=== PATIENT | female | born 1995 | race Caucasian/White ===

== ENCOUNTER 2020-04-06 12:05 | Inpatient (IN) | payer OTHER ==
[2020-04-06] MEDS ORDERED: CLINDAMYCIN 600MG PREMIX IVPB 600 MG/50 ML BAG IVPB ONE (13:14)
[2020-04-06] MEDS ORDERED: ACETAMINOPHEN 500 MG TABLET (FP) PO ONE (13:18)
[2020-04-06] MEDS ORDERED: ACETAMINOPHEN 500 MG TABLET (FP) ONE (13:49)
[2020-04-06] MEDS ORDERED: CLINDAMYCIN PHOSPHATE 600 MG/4 ML VIAL ONE (13:50)
[2020-04-06 14:15] LABS: HEMATOCRIT 42.2 % (32.4-45.2); HEMOGLOBIN 14.4 GM/dl (10.7-15.3); MCH 30.9 pg (25.7-33.7); MCHC 34.2 g/dl (32.0-36.0); MEAN CELL VOLUME 90.3 fl (80-96); PLATELET COUNT 323 K/MM3 (134-434); RBC 4.67 M/mm3 (3.60-5.2); RDW 13.3 % (11.6-15.6); WHITE BLOOD COUNT 7.8 K/mm3 (4.0-10.8)
[2020-04-06 14:17] LABS: INR 1.19 (0.82-1.09); PROTHROMBIN TIME (PATIENT) 13.2 SEC (10.2-13.0)
[2020-04-06 14:30] LABS: ALBUMIN 4.4 g/dl (3.4-5.0); BILIRUBIN,TOTAL 0.5 mg/dl (0.2-1); CALCIUM 9.4 mg/dl (8.5-10); CREATININE 0.7 mg/dl (0.55-1.3); TOT PROT 8.1 g/dl (6.4-8.2)
[2020-04-06] MEDS: ACETAMINOPHEN 325 MG TABLET (FP) PO PRN (18:22)
[2020-04-06] MEDS: VANCOMYCIN 1 GRAM (PRE-DOCKED) 1,000 MG/250 ML BAG IVPB SCH (22:19)
[2020-04-07] MEDS: VANCOMYCIN 1 GRAM (PRE-DOCKED) 1,000 MG/250 ML BAG IVPB SCH (09:09)
[2020-04-07 10:12] LABS: BASO % 0.5 % (0-2.0); EOS % 0.8 % (0-4.5); HEMATOCRIT 40.1 % (32.4-45.2); HEMOGLOBIN 13.5 GM/dl (10.7-15.3); LYMPH % 15.5 % (8-40); MCH 31.2 pg (25.7-33.7); MCHC 33.6 g/dl (32.0-36.0); MEAN CELL VOLUME 92.9 fl (80-96); MEAN PLT VOLUME 7.7 fl (7.5-11.1); NEUT % 77.2 % (42.8-82.8); PLATELET COUNT 351 K/MM3 (134-434); RBC 4.32 M/mm3 (3.60-5.2); RDW 13.2 % (11.6-15.6); WHITE BLOOD COUNT 8.4 K/mm3 (4.0-10.8)
[2020-04-07] MEDS: ACETAMINOPHEN 325 MG TABLET (FP) PO PRN (14:08)
[2020-04-07] MEDS: VANCOMYCIN 1 GM in D5W (PRE-DOCKED) 1,000 MG/250 ML IVPB SCH (17:12)
[2020-04-07] MEDS ORDERED: DEXTROSE 5%-WATER - 50 ML IVPB ONE (17:17)
[2020-04-07] MEDS ORDERED: PIPERACILLIN/TAZOBACTAM 3.375 GM VIAL IVPB ONE (17:17)
[2020-04-07] MEDS: CLINDAMYCIN 600MG PREMIX IVPB 600 MG/50 ML BAG IVPB SCH (17:22)
[2020-04-07] MEDS: PIPERACILLIN/TAZOB 3.375 GM 3.375 GM in DEXTROSE 5%-WATER - 50 ML IVPB SCH (17:23)
[2020-04-07] MEDS: ENOXAPARIN NA (PORCINE) 40 MG/0.4 ML DISP.SYRIN SQ SCH (20:49)
[2020-04-08] MEDS: PIPERACILLIN/TAZOB 3.375 GM 3.375 GM in DEXTROSE 5%-WATER - 50 ML IVPB SCH ×3 (02:23→17:44)
[2020-04-08] MEDS: CLINDAMYCIN 600MG PREMIX IVPB 600 MG/50 ML BAG IVPB SCH ×3 (02:23→18:37)
[2020-04-08] MEDS: ACETAMINOPHEN 325 MG TABLET (FP) PO PRN ×3 (04:24→23:08)
[2020-04-08] MEDS: ENOXAPARIN NA (PORCINE) 40 MG/0.4 ML DISP.SYRIN SQ SCH (11:48)
[2020-04-08] MEDS: CHOLECALCIFEROL (VIT D3) 1,000 UNIT (25 MCG) TABLET PO SCH (16:30)
[2020-04-08] MEDS: ZINC SULFATE 220 MG CAPSULE (FP) PO SCH (21:45)
[2020-04-08] MEDS ORDERED: ASCORBIC ACID 250 MG TABLET (FP) PO SCH (22:00)
[2020-04-09] MEDS: CLINDAMYCIN 600MG PREMIX IVPB 600 MG/50 ML BAG IVPB SCH ×3 (01:27→17:31)
[2020-04-09] MEDS: PIPERACILLIN/TAZOB 3.375 GM 3.375 GM in DEXTROSE 5%-WATER - 50 ML IVPB SCH ×3 (02:07→17:31)
[2020-04-09] MEDS: ACETAMINOPHEN 325 MG TABLET (FP) PO PRN (05:16)
[2020-04-09] MEDS ORDERED: ASCORBIC ACID 250 MG TABLET (FP) PO SCH (09:05)
[2020-04-09] MEDS: CHOLECALCIFEROL (VIT D3) 1,000 UNIT (25 MCG) TABLET PO SCH (11:11)
[2020-04-09] MEDS: ZINC SULFATE 220 MG CAPSULE (FP) PO SCH ×2 (11:11→22:04)
[2020-04-09] MEDS: ENOXAPARIN NA (PORCINE) 40 MG/0.4 ML DISP.SYRIN SQ SCH (11:11)
[2020-04-09] MEDS: ASCORBIC ACID 500 MG TABLET (FP) PO SCH ×2 (11:11→22:05)
[2020-04-09 11:44] LABS: BASO % 0.4 % (0-2.0); EOS % 1.5 % (0-4.5); HEMATOCRIT 39.9 % (32.4-45.2); HEMOGLOBIN 13.6 GM/dL (10.7-15.3); MEAN CELL VOLUME 91.1 fl (80-96); MEAN PLT VOLUME 7.9 fl (7.5-11.1); MONO % 7.2 % (3.8-10.2); NEUT % 74.9 % (42.8-82.8); PLATELET COUNT 402 K/MM3 (134-434); RBC 4.38 M/mm3 (3.60-5.2); RDW 13.7 % (11.6-15.6); WHITE BLOOD COUNT 6.5 K/mm3 (4.0-10.0)
[2020-04-09 12:06] LABS: ALBUMIN 3.6 g/dl (3.4-5.0); CALCIUM 9.2 mg/dL (8.5-10.1)
[2020-04-09 12:07] LABS: BLOOD UREA NITROGEN 12.1 mg/dL (7-18); MAGNESIUM 2.2 mg/dL (1.8-2.4)
[2020-04-09 12:10] LABS: CREATININE 0.7 mg/dL (0.55-1.3); PHOSPHOROUS 3.4 mg/dL (2.5-4.9)
[2020-04-09 12:11] LABS: BILIRUBIN,TOTAL 0.4 mg/dL (0.2-1); TOT PROT 7.9 g/dl (6.4-8.2)
[2020-04-10 08:34] LABS: BASO % 0.7 % (0-2.0); EOS % 2.5 % (0-4.5); HEMATOCRIT 37.4 % (32.4-45.2); HEMOGLOBIN 12.8 GM/dL (10.7-15.3); MCHC 34.3 g/dl (32.0-36.0); MEAN CELL VOLUME 90.4 fl (80-96); MEAN PLT VOLUME 7.8 fl (7.5-11.1); MONO % 8.1 % (3.8-10.2); NEUT % 64.7 % (42.8-82.8); PLATELET COUNT 398 K/MM3 (134-434); RBC 4.14 M/mm3 (3.60-5.2); WHITE BLOOD COUNT 6.6 K/mm3 (4.0-10.0)
[2020-04-10 08:55] LABS: BLOOD UREA NITROGEN 17.6 mg/dL (7-18)
[2020-04-10 08:56] LABS: ALBUMIN 3.4 g/dl (3.4-5.0)
[2020-04-10 08:59] LABS: CREATININE 0.7 mg/dL (0.55-1.3)
[2020-04-10 09:00] LABS: BILIRUBIN,TOTAL 0.2 mg/dL (0.2-1); TOT PROT 7.2 g/dl (6.4-8.2)
[2020-04-10] MEDS: CHOLECALCIFEROL (VIT D3) 1,000 UNIT (25 MCG) TABLET PO SCH (10:49)
[2020-04-10] MEDS: ZINC SULFATE 220 MG CAPSULE (FP) PO SCH ×2 (10:49→22:19)
[2020-04-10] MEDS: ENOXAPARIN NA (PORCINE) 40 MG/0.4 ML DISP.SYRIN SQ SCH (10:49)
[2020-04-10] MEDS: ASCORBIC ACID 500 MG TABLET (FP) PO SCH ×2 (10:49→22:19)
[2020-04-10] MEDS: ACETAMINOPHEN 325 MG TABLET (FP) PO PRN (18:01)
[2020-04-11] MEDS: CHOLECALCIFEROL (VIT D3) 1,000 UNIT (25 MCG) TABLET PO SCH (09:55)
[2020-04-11] MEDS: ENOXAPARIN NA (PORCINE) 40 MG/0.4 ML DISP.SYRIN SQ SCH (09:55)
[2020-04-11] MEDS: ZINC SULFATE 220 MG CAPSULE (FP) PO SCH ×2 (09:55→21:28)
[2020-04-11] MEDS: ASCORBIC ACID 500 MG TABLET (FP) PO SCH ×2 (09:56→21:28)
[2020-04-11] MEDS ORDERED: LIDOCAINE HCL 1%, 10 MG/ML (50 mL VIAL) SQ ONE ×2 (13:18→16:20)
[2020-04-12] MEDS: ZINC SULFATE 220 MG CAPSULE (FP) PO SCH ×2 (10:29→22:05)
[2020-04-12] MEDS: CHOLECALCIFEROL (VIT D3) 1,000 UNIT (25 MCG) TABLET PO SCH (10:29)
[2020-04-12] MEDS: ENOXAPARIN NA (PORCINE) 40 MG/0.4 ML DISP.SYRIN SQ SCH (10:30)
[2020-04-12] MEDS ORDERED: morphine SULFATE 4 MG/ML VIAL IVPUSH ONE (12:57)
[2020-04-12] MEDS ORDERED: LIDOCAINE HCL 2% (50ML VIAL) SQ ONE (12:57)
[2020-04-12] MEDS ORDERED: ONDANSETRON 4 MG/2 ML VIAL IVPUSH PRN (14:00)
[2020-04-12] MEDS: ASCORBIC ACID 500 MG TABLET (FP) PO SCH ×2 (15:57→22:05)
[2020-04-12 20:07] LABS: HEP B CORE AB, TOT Negative (Negative)
[2020-04-13 08:36] LABS: ALBUMIN 3.3 g/dl (3.4-5.0); BLOOD UREA NITROGEN 14.9 mg/dL (7-18); CALCIUM 8.8 mg/dL (8.5-10.1); MAGNESIUM 2.5 mg/dL (1.8-2.4)
[2020-04-13 08:39] LABS: CREATININE 0.8 mg/dL (0.55-1.3)
[2020-04-13 08:40] LABS: BILIRUBIN,TOTAL 0.3 mg/dL (0.2-1); PHOSPHOROUS 4.3 mg/dL (2.5-4.9); TOT PROT 6.9 g/dl (6.4-8.2)
[2020-04-13 08:48] LABS: BASO % 0.7 % (0-2.0); MCH 31.3 pg (25.7-33.7); MCHC 34.4 g/dl (32.0-36.0); MONO % 7.7 % (3.8-10.2); NEUT % 63.6 % (42.8-82.8); PLATELET COUNT 402 K/MM3 (134-434); RBC 3.85 M/mm3 (3.60-5.2); RDW 13.4 % (11.6-15.6); WHITE BLOOD COUNT 7.4 K/mm3 (4.0-10.0)
[2020-04-13] MEDS ORDERED: morphine SULFATE 4 MG/ML VIAL IVPUSH ONE (09:55)
[2020-04-13] MEDS ORDERED: morphine SULFATE 4 MG/ML VIAL ONE (10:00)
[2020-04-13] MEDS: ASCORBIC ACID 500 MG TABLET (FP) PO SCH ×2 (10:12→21:00)
[2020-04-13] MEDS: ZINC SULFATE 220 MG CAPSULE (FP) PO SCH ×2 (10:12→21:00)
[2020-04-13] MEDS: ENOXAPARIN NA (PORCINE) 40 MG/0.4 ML DISP.SYRIN SQ SCH (10:12)
[2020-04-13] MEDS: CHOLECALCIFEROL (VIT D3) 1,000 UNIT (25 MCG) TABLET PO SCH (10:14)
[2020-04-13 12:47] VITALS: BMI 24.8
[2020-04-13] MEDS: ACETAMINOPHEN 325 MG TABLET (FP) PO PRN (17:02)
[2020-04-14 08:46] LABS: BASO % 0.7 % (0-2.0); EOS % 2.1 % (0-4.5); HEMATOCRIT 34.2 % (32.4-45.2); HEMOGLOBIN 11.7 GM/dL (10.7-15.3); LYMPH % 26.7 % (8-40); MCH 31.2 pg (25.7-33.7); MCHC 34.3 g/dl (32.0-36.0); MEAN CELL VOLUME 91.1 fl (80-96); MEAN PLT VOLUME 8.2 fl (7.5-11.1); MONO % 8.3 % (3.8-10.2); NEUT % 62.2 % (42.8-82.8); PLATELET COUNT 390 K/MM3 (134-434); RBC 3.76 M/mm3 (3.60-5.2); RDW 13.5 % (11.6-15.6); WHITE BLOOD COUNT 6.7 K/mm3 (4.0-10.0)
[2020-04-14 09:08] LABS: ALBUMIN 3.3 g/dl (3.4-5.0); BLOOD UREA NITROGEN 13.3 mg/dL (7-18); CALCIUM 8.7 mg/dL (8.5-10.1); MAGNESIUM 2.3 mg/dL (1.8-2.4)
[2020-04-14 09:11] LABS: CREATININE 0.8 mg/dL (0.55-1.3); PHOSPHOROUS 3.9 mg/dL (2.5-4.9)
[2020-04-14 09:12] LABS: BILIRUBIN,TOTAL 0.3 mg/dL (0.2-1); TOT PROT 6.8 g/dl (6.4-8.2)
[2020-04-14] MEDS: ENOXAPARIN NA (PORCINE) 40 MG/0.4 ML DISP.SYRIN SQ SCH (10:35)
[2020-04-14] MEDS: ZINC SULFATE 220 MG CAPSULE (FP) PO SCH (10:35)
[2020-04-14] MEDS: CHOLECALCIFEROL (VIT D3) 1,000 UNIT (25 MCG) TABLET PO SCH (10:35)
[2020-04-14] MEDS: ASCORBIC ACID 500 MG TABLET (FP) PO SCH (10:35)
[2020-04-14] MEDS: ACETAMINOPHEN 325 MG TABLET (FP) PO PRN (12:13)
[2020-04-14 13:24] VITALS: BP 100/64; PULSE 63; TEMP 98.8
== END 2020-04-14 21:59 | disposition home or self-care (01) | DRG 115 ==
LOC: FER 12:05 → FM/S 13:16 → J6WEST-2 04-07 21:06 → JERBED 04-10 03:43 → J6WEST-2 04-10 03:45
PROVIDERS: ADMIT Internal Medicine; ATTEND Internal Medicine
PROC: 0991XZZ Drainage of Left External Ear, External Approach (ICD-10-PCS; 2020-04-06)
PROC: 0991XZZ Drainage of Left External Ear, External Approach (ICD-10-PCS; principal; 2020-04-11)
DX: H60.02 Abscess of left external ear (principal); U07.1 COVID-19
CPT/HCPCS: 36415; 80053; 83735; 84100; 85025; 85027; 85610; 86704; 86706; 86707; 86708; 86709; 87070; 87186; 87205; 87340; 87522; 94010; C9803; G2012-GT; U0003